=== PATIENT | female | born 1975 | race Caucasian/White ===

== ENCOUNTER 2017-04-06 22:06 | Emergency (ER) | payer MEDICAID ==
[~2017-04-06] VITALS: Ht 157.5 cm; Wt 65.0 kg
[2017-04-07] MEDS ORDERED: KETOROLAC 60MG/2ML VIAL IM ONE (07:00)
[2017-04-07 08:05] VITALS: BP 120/75
== END 2017-04-07 08:13 | disposition home or self-care (01) ==
LOC: ER 22:07
DX: L02.214 Cutaneous abscess of groin (principal)
CPT/HCPCS: 96372; 99283; J1885

== ENCOUNTER 2022-03-08 18:56 | Emergency (ER) | payer MEDICAID ==
[~2022-03-08] VITALS: Ht 160 cm; Wt 54.0 kg
[2022-03-08 19:43] LABS: BASOPHILS % 0.5 % (0.0-2.0); EOSINOPHILS % 0.6 % (0.0-5.0); HEMATOCRIT. 36.9 % (36.0-48.0); HEMOGLOBIN. 12.3 g/dL (12.0-16.0); LYMPHOCYTES % 28.4 % (20.0-50.0); MEAN CORPUSCULAR HEMOGLOBIN 27.5 pg (28.0-32.0); MEAN CORPUSCULAR VOLUME 82.2 fL (81.0-99.0); MEAN PLATELET VOLUME 8.2 fl (7.4-10.4); MONOCYTES % 7.3 % (2.0-8.0); NEUTROPHILS % 63.2 % (40.0-76.0); PLATELET 535 x1000/uL (130-400); RED BLOOD CELL COUNT 4.49 mill/uL (4.2-5.4); RED CELL DISTRIBUTION WIDTH 15.6 % (11.6-14.6)
[2022-03-08 19:47] LABS: CHLORIDE 93 mEq/L (98-107)
[2022-03-08 19:51] LABS: ETHANOL BLOOD < 10 mg/dL
[2022-03-08 19:54] LABS: HCG SCREEN NEGATIVE
[2022-03-08] MEDS ORDERED: SODIUM CHLORIDE 0.9% 1,000 ML IV ONE ×2 (20:30)
[2022-03-08] MEDS ORDERED: ONDANSETRON HCL 4MG/2ML INJ IV ONE (20:45)
[2022-03-08 21:17] LABS: CLARITY URINE TURBID (CLEAR); COLOR URINE ORANGE (YELLOW); KETONES URINE TRACE (NEGATIVE); LEUKOCYTE ESTERASE URINE 2+ (NEGATIVE); NITRITE URINE NEGATIVE (NEGATIVE); OCCULT BLOOD URINE 3+ (NEGATIVE); PROTEIN URINE 2+ (NEGATIVE); SPECIFIC GRAVITY URINE 1.035 (1.005-1.030); UROBILINOGEN URINE 0.2 E.U./dL (0.2-1.0)
[2022-03-08] MEDS ORDERED: INSULIN REGULAR (HUMULIN R) 300UNITS/3ML VIAL SUBCUT ONE (21:30)
[2022-03-08 21:31] LABS: CANNABINOID URINE SCREEN NEGATIVE (NEGATIVE); METHADONE URINE SCREEN NEGATIVE (NEGATIVE); OPIATES URINE SCREEN NEGATIVE (NEGATIVE); PHENCYCLIDINE URINE SCREEN NEGATIVE (NEGATIVE)
[2022-03-08 21:32] LABS: *AMPHETAMINES SCREEN URINE NEGATIVE (NEGATIVE); *BARBITURATES SCREEN URINE NEGATIVE (NEGATIVE); *BENZODIAZEPINES SCREEN URINE NEGATIVE (NEGATIVE); *COCAINE SCREEN URINE NEGATIVE (NEGATIVE)
[2022-03-08] MEDS ORDERED: CEFTRIAXONE 1 G PREMIX 50 ML IV ONE (22:30)
[2022-03-09 01:20] VITALS: BP 162/96
== END 2022-03-09 02:50 | disposition short-term general hospital (02) ==
LOC: ER 18:56
DX: E11.65 Type 2 diabetes mellitus with hyperglycemia (principal); R53.1 Weakness; R11.2 Nausea with vomiting, unspecified; Z20.822 Contact with and (suspected) exposure to COVID-19; Z98.890 Other specified postprocedural states; Z85.828 Personal history of other malignant neoplasm of skin; Z79.84 Long term (current) use of oral hypoglycemic drugs
CPT/HCPCS: 36415; 71045; 80053; 80305; 80320; 81003; 82962; 83690; 83880; 84484; 84703; 85025; 86850; 86900; 86901; 87426; 93005; 96361; 96372; 96374; 96375; 99285; J0696; J1815; J2405; J7030; Z7610; G0480

== ENCOUNTER 2022-09-08 20:25 | Emergency (ER) | payer MEDICAID ==
[~2022-09-08] VITALS: Ht 157.5 cm; Wt 57.0 kg
[2022-09-08] MEDS ORDERED: ACETAMINOPHEN 325MG TABLET PO STA (21:42)
[2022-09-08] MEDS ORDERED: IBUPROFEN 600MG TABLET PO STA (21:42)
[2022-09-08] MEDS ORDERED: ACETAZOLAMIDE 500MG ER CAPSULE PO ONE (22:45)
[2022-09-08] MEDS ORDERED: BRIMONIDINE 0.2% OPHTH DROPS 5ML RIGHTEYE ONE (22:45)
[2022-09-08 23:04] LABS: BASOPHILS % 0.4 % (0.0-2.0); EOSINOPHILS % 3.3 % (0.0-5.0); HEMOGLOBIN. 9.9 g/dL (12.0-16.0); LYMPHOCYTES % 27.7 % (20.0-50.0); MEAN CORPUSCULAR HEMOGLOBIN 29.4 pg (28.0-32.0); MEAN CORPUSCULAR VOLUME 83.2 fL (81.0-99.0); MEAN PLATELET VOLUME 7.5 fl (7.4-10.4); MONOCYTES % 7.9 % (2.0-8.0); NEUTROPHILS % 60.7 % (40.0-76.0); PLATELET 413 x1000/uL (130-400); RED BLOOD CELL COUNT 3.37 mill/uL (4.2-5.4); RED CELL DISTRIBUTION WIDTH 14.7 % (11.6-14.6)
[2022-09-08 23:59] LABS: CHLORIDE 103 mEq/L (98-107)
[2022-09-09] MEDS ORDERED: PILOCARPINE HCL 2% OPHTH DROPS 15ML RIGHTEYE SCH (06:00)
[2022-09-09] MEDS ORDERED: TIMOLOL MALEATE 0.5% OPHTH DROPS 5ML RIGHTEYE SCH (09:00)
[2022-09-09 10:11] VITALS: BP 142/76
[2022-09-09] MEDS ORDERED: HYDROCODONE/ACETAMINOPHEN 5/325MG TABLET PO ONE (11:30)
== END 2022-09-09 15:49 | disposition home or self-care (01) ==
LOC: ER 20:25 → CANBEDREQ 09-09 16:51
DX: H40.211 Acute angle-closure glaucoma, right eye (principal); E11.9 Type 2 diabetes mellitus without complications; I25.2 Old myocardial infarction; E78.00 Pure hypercholesterolemia, unspecified; Z85.9 Personal history of malignant neoplasm, unspecified; Z98.890 Other specified postprocedural states
CPT/HCPCS: 36415; 80053; 85025; 99291